=== PATIENT | female | born 1960 | race American Indian/Alaskan Native ===

== ENCOUNTER 2020-08-21 18:57 | Emergency (ER) | payer OTHER ==
[~2020-08-21] VITALS: Ht 149.9 cm; Wt 65.8 kg
[~2020-08-21 18:57] MED LIST: ALBU.083IS IH; ALBU3IS; ALBU90OI; ALBU90OI6 INH; ALBU90OI61 INH; BENZ100A; BUDE6HFA; CIPR500; CIPR500 PO; ERYT500; ETHINYL ESTRADIOL; FLUT220OIA; FLUT220OIA IH; FLUT44OIA IH; IPRAIS NEB; IRON PILLS; MECL25 PO; NORGESTIMATE; RANI150EL PO; RXLORA1 PO; SPRINTEC PO; TIOT18; Toprol Xl25 MG PO; [UNRECOGNIZED DRUG - OTHER]
[2020-08-21] MEDS ORDERED: BANOPHEN25 MG PO (21:15)
[2020-08-21] MEDS ORDERED: Pepcid20 MG PO (21:15)
== END 2020-08-21 21:30 | disposition home or self-care (01) ==
LOC: ER 18:57
DX: J02.9 Acute pharyngitis, unspecified (principal); R53.1 Weakness; T50.B95A Adverse effect of other viral vaccines, initial encounter; I10 Essential (primary) hypertension; Z88.0 Allergy status to penicillin; Z88.5 Allergy status to narcotic agent; Z88.2 Allergy status to sulfonamides; Z88.8 Allergy status to other drugs, medicaments and biological substances; Z79.899 Other long term (current) drug therapy
CPT/HCPCS: 99283; A9270; J0780; J1200; J1885

== ENCOUNTER → 2024-10-11 | Outpatient (CLI) | payer SELFPAY ==
[~2024-10-11] MED LIST changes: +BANOPHEN25 MG PO; +Pepcid20 MG PO
[2024-10-11 14:35] LABS: Bacterial Vaginosis PCR Negative (NEGATIVE); Candida Group, PCR NOT DETECTED (NOT DETECT); Candida glabrata-krusei, PCR NOT DETECTED (NOT DETECT)
== END ==
LOC: LAB SHORT 10:31 → LAB 10:31
PROVIDERS: Advanced Practice Midwife
DX: Z01.419 Encounter for gynecological examination (general) (routine) without abnormal findings (principal); N76.0 Acute vaginitis
CPT/HCPCS: 81515; 87624; G0145